=== PATIENT | female | born 1980 ===

== ENCOUNTER 2020-03-26 09:57 | Day surgery (SDC) | payer OTHER ==
[~2020-03-26 09:57] MED LIST: Lactated Ringers 1,000 ML IV SCH; Midazolam 1 MG/ML 2 ML SDV ONE; Propofol 200 MG/20 ML SDV ONE
--- NOTE | 2020-03-26 10:33 | PCM.PREANE ---
Preanesthetic Assessment - Anesthesia/Transfusion/Family Hx Anesthesia History: Prior Anesthesia Without Reaction Family History of Anesthesia Reaction: No Transfusion History: No Prior Transfusion(s) - Review of Systems General: No Symptoms Pulmonary: No Symptoms Cardiovascular: No Symptoms Neurological: No Symptoms Other: Reports: None - Physical Assessment NPO Status Date: 03/25/20 Height: 5 ft 5 in Weight: 76.657 kg ASA Class: 2 Mental Status: Alert & Oriented x3 Airway Class: Mallampati = 1 Dentition: Reports: Normal Dentition ROM/Head Extension: Full Lungs: Clear to Auscultation, Normal Respiratory Effort Cardiovascular: Regular Rate, Regular Rhythm - Lab Values: Laboratory Last Values Urine HCG, Qual NEGATIVE (NEGATIVE) 03/26/20 10:04 - Allergies Allergies/Adverse Reactions: Allergies Allergy/AdvReac Type Severity Reaction Status Date / Time codeine Allergy Nausea and Verified 03/23/20 11:35 Vomiting - Blood Blood Available: No - Anesthesia Plan Pre-Op Medication Ordered: None - Acknowledgements Anesthesia Type Planned: General Anesthesia (tiva) Pt an Appropriate Candidate for the Planned Anesthesia: Yes Alternatives and Risks of Anesthesia Discussed w Pt/Guardian: Yes Pt/Guardian Understands and Agrees with Anesthesia Plan: Yes PreAnesthesia Questionnaire HEENT History: Reports: None Cardiovascular History: Reports: None Respiratory History: Reports: None Gastrointestinal History: Reports: Cholelithiasis Genitourinary History: Reports: None 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: Musculoskeletal History: Reports: None Neurological History: Reports: None Psychiatric History: Reports: Anxiety Endocrine/Metabolic History: Reports: None Hematologic History: Reports: None Immunologic History: Reports: None Oncologic (Cancer) History: Reports: None Dermatologic History: Reports: None - Infectious Disease History Infectious Disease History: Reports: Chicken Pox Other Infectious Disease History: when a child - Past Surgical History Head Surgeries/Procedures: Reports: None HEENT Surgical History: Reports: Oral Surgery Other HEENT Surgeries/Procedures: widom teeth removed Cardiovascular Surgical History: Reports: None Respiratory Surgical History: Reports: None GI Surgical History: Reports: Cholecystectomy Female Surgical History: Reports: Breast Implant, Section Endocrine Surgical History: Reports: None Neurological Surgical History: Reports: None Musculoskeletal Surgical History: Reports: None Dermatological Surgical History: Reports: None - SUBSTANCE USE Tobacco Use Status *Q: Never Tobacco User - HOME MEDS Home Medications: Home Meds Phentermine/Topiramate [Qsymia 15 mg-92 mg Capsule] 1 tab PO DAILY 03/23/20 [History] Vitamin B12 Injectable 1 injection IM ASDIRECTED 03/23/20 [History] - CURRENT (IN HOUSE) MEDS Current Meds: Current Medications Lactated Ringer's (Ringers, Lactated) 1,000 mls @ 125 mls/hr IV ASDIRECTED MYAH Discontinued Medications Midazolam HCl (Versed 1 Mg/Ml) Confirm Administered Dose 2 mg .ROUTE .STK-MED ONE Stop: 03/26/20 07:47 Propofol (Diprivan 20 Ml) Confirm Administered Dose 600 mg .ROUTE .STK-MED ONE Stop: 03/26/20 07:47
[2020-03-26] MEDS ORDERED: Glycopyrrolate 0.2 MG/ML SDV ONE (10:38)
[2020-03-26] MEDS ORDERED: Lidocaine 2% 5 ML SDV ONE (10:38)
--- NOTE | 2020-03-26 11:35 | PCM.POSTAN ---
POST ANESTHESIA ASSESSMENT - MENTAL STATUS Mental Status: Alert, Oriented - VITAL SIGNS Vital Signs: Last Vital Signs Temp 36.2 C 03/26/20 10:24 Pulse 71 03/26/20 11:30 Resp 17 03/26/20 11:30 BP 102/62 03/26/20 11:30 Pulse Ox 98 03/26/20 11:30 - RESPIRATORY Respiratory Status: Respiratory Rate WNL, Airway Patent, O2 Saturation Stable - CARDIOVASCULAR CV Status: Pulse Rate WNL, Blood Pressure Stable - GASTROINTESTINAL GI Status: No Symptoms - PAIN Pain Score: 0 (Denies pain) - POST OP HYDRATION Hydration Status: Adequate & Stable (Denies nausea)
--- NOTE | 2020-03-26 11:38 | PCM.OPNOTE ---
- General Post-Op/Procedure Note Date of Surgery/Procedure: 03/26/20 Operative Procedure(s): EGD with biopsies and polypectomies Findings: Stomach polyps Dictation # [id number] Pre Op Diagnosis: N/V Post-Op Diagnosis: Stomach polyps Primary Surgeon: Mingo Elizabeth Pathology: Stomach polyps Complications: None Condition: Good
--- NOTE | 2020-03-26 11:47 | PCM48HPAN ---
Post Anesthesia Note - EVALUATION WITHIN 48HRS OF ANESTHETIC Vital Signs in Normal Range: Yes Patient Participated in Evaluation: Yes Respiratory Function Stable: Yes Airway Patent: Yes Cardiovascular Function Stable: Yes Hydration Status Stable: Yes Pain Control Satisfactory: Yes Nausea and Vomiting Control Satisfactory: Yes Mental Status Recovered: Yes Vital Signs: Last Vital Signs Temp 36.2 C 03/26/20 10:24 Pulse 71 03/26/20 11:30 Resp 17 03/26/20 11:30 BP 102/62 03/26/20 11:30 Pulse Ox 98 03/26/20 11:30
--- NOTE | 2020-03-26 12:03 | PCM48HPAN ---
Post Anesthesia Note - EVALUATION WITHIN 48HRS OF ANESTHETIC Vital Signs in Normal Range: Yes Patient Participated in Evaluation: Yes Respiratory Function Stable: Yes Airway Patent: Yes Cardiovascular Function Stable: Yes Hydration Status Stable: Yes Pain Control Satisfactory: Yes Nausea and Vomiting Control Satisfactory: Yes Mental Status Recovered: Yes Vital Signs: Last Vital Signs Temp 97.2 F 03/26/20 10:24 Pulse 71 03/26/20 11:30 Resp 17 03/26/20 11:30 BP 102/62 03/26/20 11:30 Pulse Ox 98 03/26/20 11:30
--- NOTE | 2020-03-26 14:28 | OR ---
SURGEON: GIGI CABRERA MD DATE OF PROCEDURE: 03/26/2020 PREOPERATIVE DIAGNOSES: 1. Nausea. 2. Vomiting. POSTOPERATIVE DIAGNOSIS: Stomach polyps. PROCEDURE PERFORMED: Esophagogastroduodenoscopy with biopsies and polypectomies. ANESTHESIA: With anesthesiologist. EXTENT OF THE ESOPHAGOGASTRODUODENOSCOPY: At least to the 2nd part of the duodenum. COMPLICATIONS: None. REASON FOR PROCEDURE: The patient is a pleasant 39-year-old female who says she has had issues with nausea, and then she will have coughing spells which leads to vomiting up some phlegm. The patient says she does have a lot of issues with postnasal drip. She is also having some left chest and shoulder pain. She is referred for EGD because of her nausea and vomiting. PROCEDURE IN DETAIL: Physical examination was performed. The major risks and benefits associated with the procedure were explained to the patient in detail. The patient verbalized understanding of the same. The patient was then connected to the appropriate monitoring devices and IV started. EKG, pulse, pulse oximetry, blood pressure, and capnography were monitored throughout the procedure. The patient's oxygen and sedation were provided by the anesthesiologist. Now, an upper endoscope was advanced under direct visualization without any difficulty to the upper GI tract. The anatomy of the mucosa of the esophagus, GE junction, stomach, pylorus, and at least 2nd part of the duodenum were examined. The duodenum appeared normal. Scope was withdrawn to the stomach. Stomach also did not appear to have any gastritis or ulcerations. The patient was noted to have some small polyps. She had 3 of them. These were all removed with cold biopsy polypectomy. The scope was brought to the GE junction. Her GE junction was at about 38 cm from her incisors. The squamocolumnar junction appeared intact. The scope was brought back into the stomach. The stomach was de-insufflated. There was good hemostasis at the polypectomy sites. The scope was brought up through the esophagus. The esophagus appeared normal. The scope was then completely removed, and the procedure was terminated. ENDOSCOPIC DIAGNOSIS: Stomach polyps. RECOMMENDATION: The patient should follow up in clinic to go over her pathology results. ETHAN / EVE /[id number]
== END 2020-03-26 11:48 | disposition home or self-care (01) ==
LOC: MW.SDS 09:57
PROVIDERS: ATTEND Surgery
DX: K31.7 Polyp of stomach and duodenum (principal); Z88.5 Allergy status to narcotic agent
CPT/HCPCS: 43239; 81025; J2001; J2250; J2704; J3490; J7120